=== PATIENT | female | born 1990 ===

== ENCOUNTER → 2020-07-06 15:00 | Outpatient (CLI) | payer OTHER | END | disposition home or self-care (01) | LOC: PPH VACUNA 15:00 | DX: Z23 Encounter for immunization (principal) ==

== ENCOUNTER → 2021-03-23 | Outpatient (CLI) | payer OTHER | END | disposition home or self-care (01) | LOC: PRENATAL 10:59 | PROVIDERS: ATTEND Obstetrics & Gynecology Maternal & Fetal Medicine | DX: Z36.89 Encounter for other specified antenatal screening (principal); O36.80X1 Pregnancy with inconclusive fetal viability, fetus 1; Z3A.14 14 weeks gestation of pregnancy ==

== ENCOUNTER 2021-05-04 14:19 | Outpatient (CLI) | payer OTHER | END 2021-05-04 15:40 | disposition home or self-care (01) | LOC: PRENATAL 14:19 | PROVIDERS: ATTEND Obstetrics & Gynecology Maternal & Fetal Medicine | DX: O35.0XX0 Maternal care for (suspected) central nervous system malformation in fetus, not applicable or unspecified (principal); O35.3XX0 Maternal care for (suspected) damage to fetus from viral disease in mother, not applicable or unspecified ==

== ENCOUNTER 2021-09-07 12:35 | Inpatient (IN) | payer OTHER ==
[~2021-09-07] VITALS: Ht 165.1 cm; Wt 63.5 kg
[2021-09-07] MEDS ORDERED: PRENATAL TABLE1 EAC3 PO (13:34)
== END 2021-09-09 13:20 | disposition home or self-care (01) | DRG 807 ==
LOC: LDR 12:35 → SURG-SUITE 16:36
PROVIDERS: ADMIT Obstetrics & Gynecology; ATTEND Obstetrics & Gynecology
PROC: 10E0XZZ Delivery of Products of Conception, External Approach (ICD-10-PCS; principal; 2021-09-07)
PROC: 0KQM0ZZ Repair Perineum Muscle, Open Approach (ICD-10-PCS; 2021-09-07)
PROC: 4A1HXCZ Monitoring of Products of Conception, Cardiac Rate, External Approach (ICD-10-PCS; 2021-09-07)
DX: O70.1 Second degree perineal laceration during delivery (principal); Z37.0 Single live birth; O99.820 Streptococcus B carrier state complicating pregnancy; Z3A.38 38 weeks gestation of pregnancy; Z20.822 Contact with and (suspected) exposure to COVID-19

== ENCOUNTER 2022-03-13 13:05 | Outpatient (CLI) | payer OTHER ==
[~2022-03-13 13:05] MED LIST: PRENATAL TABLE1 EAC3 PO
== END 2022-03-13 13:15 | disposition home or self-care (01) ==
LOC: PPH VACUNA 13:05
PROVIDERS: ATTEND Emergency Medicine Pediatric Emergency Medicine
DX: Z23 Encounter for immunization (principal)